=== PATIENT | female | born 1990 | race Caucasian/White ===

== ENCOUNTER 2019-05-01 06:31 | Emergency (ER) | payer OTHER, SELFPAY ==
[2019-05-01] MEDS ORDERED: Ketorolac Tromethamine 30 MG/ML VIAL ONE (07:20)
[2019-05-01] MEDS ORDERED: Diazepam 5 MG TAB ONE (08:14)
[2019-05-01] MEDS ORDERED: Morphine 4 MG/ML VIAL ONE (08:14)
--- NOTE | 2019-05-01 08:17 | CT ---
CT Cervical Spine WO Con Indication: Pain COMPARISON: None FINDINGS: Acute fracture/subluxation: None Spinal alignment: No acute malalignment. Vertebral body heights: Maintained. Cervical spine degenerative change: Mild IMPRESSION: No acute osseous abnormality.
== END 2019-05-01 08:57 | disposition home or self-care (01) ==
LOC: ERS 06:31
DX: M54.2 Cervicalgia (principal); F41.9 Anxiety disorder, unspecified; F32.9 Major depressive disorder, single episode, unspecified; F17.210 Nicotine dependence, cigarettes, uncomplicated
CPT/HCPCS: 72125; 96372; J1885; J2270

== ENCOUNTER 2021-11-06 10:51 | Outpatient (CLI) | payer OTHER | END 2021-11-06 10:52 | disposition home or self-care (01) | LOC: DTY/OP 10:51 | PROVIDERS: ATTEND Physical Medicine & Rehabilitation | DX: E66.01 Morbid (severe) obesity due to excess calories (principal) | CPT/HCPCS: 97802 ==